=== PATIENT | female | born 1960 | race Caucasian/White ===

== ENCOUNTER → 2019-12-24 08:54 | Outpatient (CLI) | payer MEDICARE ==
[~2019-12-24] VITALS: Ht 162.6 cm; Wt 72.3 kg
--- NOTE | ~2019-12-24 | HEMODYNAMI ---
PATIENT:LENCHO CAMPBELL MEDICAL RECORD: [id number] : 58 [id number] ADMISSION DATE: 12/24/19 Generatedon:12/24/201911:19 Patient name: LENCHO CAMPBELL Patient #: [id number] SSN: [id number] : 1960 Date of study: 12/24/2019 Page: Of Hemodynamic Procedure Report Patient Data Patient Demographics Procedure consent was obtained First Name: LENCHO Gender: Female Last Name: ADRIAN : 1960 Patient #: [id number] Age: 59 year(s) Race: SSN: [id number] Additional ID: [id number] Contact details Address: [address] [place] [address] State: [place] City: [place] Zip code: [address] Admission Admission Data Admission Date: 12/24/2019 Admission Time: 8:54 Arrival Date: 12/24/2019 Arrival Time: 10:00 Admit Source: Other Insurance Payor: Medicare [facility] #: [id number] Height (in.): 63.78 BSA: 1.77 (m2) Height (cm.): 162 BMI: 27.43 (kg/m2) Weight (lbs.): 158.73 Weight (kg.): 72 Procedure Procedure Types Cath Procedure Diagnostic Procedure LHC LHC w/Coronaries Procedure Description Procedure Date Procedure Date: 12/24/2019 Procedure Start Time: 11:10 Procedure End Time: 11:16 Procedure Staff Name Function Frank Webber MD Performing Physician Raquel Iverson RT Monitor Cherie Lowry RT Scrub Alexandra Nath RN Nurse Indication Angina Procedure Data Cath Procedure Fluoroscopy Diagnostic fluoroscopy Total fluoroscopy Time: 0.9 time: 0.9 min min Diagnostic fluoroscopy Total fluoroscopy dose: 296 dose: 296 mGy mGy Contrast Material Contrast Material Type Amount (ml) Isovue 300 41 Entry Location Entry Primary Successful Side Size Upsize Upsize Entry Closure Ren ccessful Closure Location (Fr) 1 (Fr) 2 (Fr) Remarks Device Remarks Radial Right 6 Fr Mechanical artery Short Compression Estimated blood loss: 5 ml Diagnostic catheters Device Type Used For End Catheter Placement DIAGNOSTIC [place] 110cm 5 Multi-vessel Fr catheter ([id number]) Angiography Procedure Complications No complications Procedure Medications Medication Administration Route Dosage Oxygen etCO2 Nasal cannula 2 l/min Lidocaine 2% added to field 20 Heparin Flush Bag added to field 2 bags (1000units/500ml NS) 0.9% NaCl I.V. 100 ml/hr Radial Cocktail I.A. 1 syringe (Verapamil 2mg/Nitro 400mcg/Heparin 1500units) Versed I.V. 1 mg Fentanyl I.V. 50 mcg Versed I.V. 1 mg Fentanyl I.V. 50 mcg Fentanyl I.V. 12.5 mcg Hemodynamics Rest BSA: 1.77 (m2) O2 Consumption: Estimated: 186.41 (ml/min) O2 Consumption indexed : Estimated:105.32 (ml/min/m) Heart Rate: 98 (bpm) Pressure Samples Time Site Value (mmHg) Purpose Heart Use Rate(bpm) 11:12 LV 125/6,12 Snapshot 83 Snapshots Pre Cath Intra NCS Post Cath Vital Signs Time Heart Resp SPO2 etCO2 NIBP (mmHg) Rhythm Pain Sedation Rate (ipm) (%) (mmHg) Status Level (bpm) 10:21:18 96 25 93 17.3 117/90(108) NSR 0 (11) 10(A) , No pain 10:26:36 94 22 97 24.9 141/86(116) NSR 0 (11) 10(A) , No pain 10:30:48 93 21 96 12.8 139/85(105) NSR 0 (11) 10(A) , No pain 10:34:58 100 21 94 26.4 134/89(112) NSR 0 (11) 10(A) , No pain 10:39:08 95 19 95 28.7 138/85(111) NSR 0 (11) 10(A) , No pain 10:43:20 94 18 92 26.4 135/84(103) NSR 0 (11) 10(A) , No pain 10:47:31 91 17 94 28.7 130/80(101) NSR 0 (11) 10(A) , No pain 10:51:42 94 17 94 27.9 130/80(108) NSR 0 (11) 10(A) , No pain 10:55:49 94 18 93 27.2 130/84(105) NSR 0 (11) 10(A) , No pain 10:59:57 96 19 94 12 130/82(104) NSR 0 (11) 10(A) , No pain 11:04:09 92 16 95 24.9 129/70(99) NSR 0 (11) 10(A) , No pain 11:08:17 89 15 94 26.4 129/81(91) NSR 0 (11) 9(A) , No pain 11:12:27 91 15 93 19.6 127/71(88) NSR 0 (11) 9(A) , No pain 11:16:31 94 15 93 11.3 112/70(93) NSR 0 (11) 10(A) , No pain Medications Time Medication Route Dose Verified Delivered Reason Notes Effectiveness by by 10:22:29 Oxygen etCO2 2 l/min Frank Morris used for Nasal Lawanda Nath RN procedure cannula 10:22:38 Lidocaine 2% added 20ml Frank Marie for local to vial Lawanda Webber MD anesthetic field 10:22:44 Heparin Flush added 2 bags Frank Marie used for Bag to Lawanda Webber MD procedure (1000units/500ml field NS) 10:22:52 0.9% NaCl I.V. 100 Frank Morris Per ml/hr Lawanda Nath RN physician 10:27:36 Radial Cocktail I.A. 1 Frank Marie for (Verapamil syringe Lawanda Webber MD vasodilation 2mg/Nitro 400mcg/Heparin 1500units) 11:06:37 Versed I.V. 1 mg Frank Morris for sedation Lawanda Nath RN 11:06:43 Fentanyl I.V. 50 mcg Frank Morris for sedation Lawanda Nath RN 11:09:52 Versed I.V. 1 mg Frank Constantinoie for sedation Lawanda Nath RN 11:09:56 Fentanyl I.V. 50 mcg Frank Morris for sedation Lawanda Nath RN 11:13:21 Fentanyl I.V. 12.5 Frank Morris for sedation mcg Lawanda Nath RN Procedure Log Time Note 10:00:59 Cherie Lowry RT(R) sent for patient. Start room use. 10:09:11 Informed consent obtained and on chart 10:09:21 Diagnostic Cath Status : Elective 10:09:36 Indication : Angina 10:10:42 Arrival Date: 12/24/2019 10:00:00 AM 10:12:05 Insurance Payor : Medicare 10:12:06 Admit Source: Other 10:13:46 Patient Height : 63.78 inches 10:13:49 Patient Weight : 158.73 lbs 10:13:57 Procedure Status Elective Heart Cath (OP). 10:14:04 Time tracking: Regular hours (M-F 7:00 - 5:00) 10:14:08 Plan of Care:Hemodynamics will remain stable., Cardiac rhythm will remain stable., Comfort level will be maintained., Respiratory function will remain adequate., Patient/ family verbilizes understanding of procedure., Procedure tolerated without complication., Recovers from procedure without complications.. 10:14:14 Patient received from Pre/Post Procedure Room to [facility] Alert and oriented. Tansferred to table in Supine position. 10:14:16 Warm blankets applied, and wolf hugger turned on for patient comfort. 10:14:16 Correct patient and procedure confirmed by team. 10:14:16 ECG and BP/O2 sat monitors applied to patient. 10:15:54 Risk of Mortality: 0.1 10:15:57 Risk of blood transfusion: 0.8 10:16:01 Risk of SANJEEV: 0.6 10:22:29 Oxygen 2 l/min etCO2 Nasal cannula was administered by Alexandra Nath RN; used for procedure; Verbal order read back and verified. 10:22:38 Lidocaine 2% 20ml vial added to field was administered by Frank Webber MD; for local anesthetic; Verbal order read back and verified. 10:22:44 Heparin Flush Bag (1000units/500ml NS) 2 bags added to field was administered by Frank Webber MD; used for procedure; Verbal order read back and verified. 10:22:52 0.9% NaCl 100 ml/hr I.V. was administered by Alexandra Nath RN; Per physician; Verbal order read back and verified. 10:24:52 Vital chart was started 10:24:53 Baseline sample Acquired. 10:24:57 Rhythm: sinus rhythm 10:24:58 Full Disclosure recording started 10:25:02 H&P Date Dictated: 12/24/2019 Within 30 days and on chart., H&P Addendum completed by physician on day of procedure. (MUST COMPLETE FOR ALL OUTPATIENTS). 10:25:03 Pre-procedure instructions explained to patient. 10:25:03 Pre-op teaching completed and patient verbalized understanding. 10:25:05 Family in waiting room. 10:25:06 Patient NPO since Midnight. 10:25:08 Is the patient allergic to Iodine/contrast media? No. 10:25:09 Was the patient premedicated? Yes 10:25:10 Is patient on blood thinner?No 10:25:12 Patient diabetic? No. 10:25:14 Previous problem with sedation/anesthesia? No ? 10:25:16 Snore? Yes 10:25:17 Sleep apnea? Yes 10:25:18 Deviated septum? No 10:25:19 Opens mouth fully? Yes 10:25:19 Sticks out tongue? Yes 10:25:24 Airway obstruction? Yes copd asthma 10:25:27 Dentures? No ? 10:25:30 Pre procedure: right dorsailis pedis pulse 2+ Normal; easily identifiable; not easily obliterated 10:25:33 Pre procedure: left dorsailis pedis pulse 2+ Normal; easily identifiable; not easily obliterated 10:25:36 Patient pain scale 0/10 ?. 10:25:43 IV patent on arrival in left forearm with 0.9% NaCl at KVO. 10:25:47 Lab results completed and on chart. 10:25:53 Stress Test: no; N/A ? 10:25:57 Right Radial & Right Groin area was prepped with chlora-prep and draped in sterile fashion 10:25:57 Alarms reviewed by R. N. 10:25:58 Sharps counted by scrub and verified by R.N. 10:27:36 Radial Cocktail (Verapamil 2mg/Nitro 400mcg/Heparin 1500units) 1 syringe I.A. was administered by Frank Webber MD; for vasodilation; Verbal order read back and verified. 11:05:37 Physician arrived 11:05:37 --------ALL STOP TIME OUT------ 11:05:38 Final Timeout: patient, procedure, and site verified with staff and physician. All members of the team are in agreement. 11:05:41 Right Radial & Right Groin site verified by team. 11:05:47 Fire Safety Assessment: A--An alcohol-based skin anteseptic being used preoperatively., C--Open oxygen or nitrous oxide is being used., D--An ESU, laser, or fiber-optic light is being used. 11:05:51 Physical assessment completed. ASA score P 2 - A patient with mild systemic disease as per Frank Webber MD. 11:06:08 2) 60-89 Mildly reduced kidney function, and other findings (as for stage 1) point to kidney disease. 11:06:33 Maximum allowable contrast dose (3.7 X eGFR X 0.75)188 ml. 11:06:37 Versed 1 mg I.V. was administered by Alexandra Nath RN; for sedation; Verbal order read back and verified. 11:06:38 Sedation plan: IV Moderate Sedation Medication:Versed, Fentanyl 11:06:43 Fentanyl 50 mcg I.V. was administered by Alexandra Nath RN; for sedation; Verbal order read back and verified. 11:06:47 Use device set Radial Dx or PCI 11:06:48 ACIST Syringe (95400) opened to sterile field. 11:06:49 Medline Cath Pack ([id number]) opened to sterile field. 11:06:49 Bag Decanter (2002) opened to sterile field. 11:06:50 ACIST Hand Control (66860) opened to sterile field. 11:06:50 ACIST Manifold (08034) opened to sterile field. 11:06:51 Tegaderm 4 x 4 (1626W) opened to sterile field. 11:06:51 MBrace Wrist Support ([id number]) opened to sterile field. 11:06:54 EMERALD Guide Wire (569-142) opened to sterile field. 11:06:56 SHEATH 6FR RAIN (5122995) opened to sterile field. 11:09:52 Versed 1 mg I.V. was administered by Alexandra Nath RN; for sedation; Verbal order read back and verified. 11:09:54 Procedure started. 11:09:56 Fentanyl 50 mcg I.V. was administered by Alexandra Nath RN; for sedation; Verbal order read back and verified. 11:10:09 Local anesthetic to right radial artery with Lidocaine 2% by Frank Webber MD.INITIAL ACCESS ONLY 11:11:15 A 6 Fr Short sheath was inserted into the Right Radial artery 11:11:38 A DIAGNOSTIC [place] 110cm 5 Fr catheter (913506) was advanced over the wire and used for Multi-vessel Angiography. 11:13:00 LV hemodynamics recorded. 11:13:01 LV gram done using CELESTE 11:13:04 Injector settings: Ml/sec: 5, Volume: 15, 11:13:11 EF : 60 % 11:13:21 Fentanyl 12.5 mcg I.V. was administered by Alexandra Nath RN; for sedation; Verbal order read back and verified. 11:13:27 RCA angiography performed. 11:13:42 Injector settings: Ml/sec: 3, Volume: 6, 11:13:45 LCA angiography performed. 11:13:52 Injector settings: Ml/sec: 3, Volume: 6, 11:14:14 Catheter removed. 11:14:40 ACCDominant side:Left 11:14:50 Sheath removed intact; hemostasis achieved with Mechanical Compression to the Right Radial artery. 11:14:53 ZEPHYR REGULAR TR BAND (339359) opened to sterile field. 11:14:54 Procedure ended.(Physican Out) 11:15:12 Fluoroscopy time 00.90 minutes. 11:15:16 Fluoroscopy dose: 296 mGy 11:15:16 Flurop Dose total: 296 11:15:21 Dose Area Product 20654 mGy/cm. 11:15:33 Contrast amount:Isovue 300 41ml. 11:15:35 Maximum allowable dose exceeded? No. 11:15:36 Sharps counted by scrub and verified by R.N. 11:15:39 [place] band inflated with 10cc of air. 11:15:40 Insertion/operative site no bleeding no hematoma. 11:15:44 Post right radial artery:stable 11:15:45 Post Procedure Pulses reassessed and unchanged 11:15:48 Post procedure rhythm: unchanged. 11:15:52 Estimated blood loss: 5 ml 11:15:54 Post procedure instruction explained to patient.Patient verbalizes understanding. 11:15:54 Patient needs reinforcement of post procedure teaching. 11:16:11 Procedure and supply charges have been captured, reviewed, submitted and are correct. 11:16:16 Procedure Complication : No complications 11:16:18 Vital chart was stopped 11:16:20 [facility] Findings: mild to moderate CAD (<70%) 11:16:21 Operative report dictated upon procedure completion. 11:16:21 See physician's report for complete and final results. 11:16:25 Report given to Pre/Post Procedure Room. 11:16:27 Patient transfered to Pre/Post Procedure Room with Stretcher. 11:16:29 Procedure ended. 11:16:29 Full Disclosure recording stopped 11:16:35 End room use (Document Last) 11:17:11 End room use (Document Last) 11:18:09 End room use (Document Last) Device Usage Item Name Manufacture Quantity Catalog Hospital Part Current Minima l Lot# / Number Charge Number Stock Stock Serial# Code ACIST Acist 1 72667 252560 228578 [id number] 20 Syringe Medical (40113) Systems Inc Medline Medline 1 [id number] 53281 995288 5 Cath Pack ([id number]) Bag Microtek 1 274369 39516 091965 5 Decanter Medical Inc. () ACIST Hand Acist 1 06563 412465 493557 849506 5 Control Medical (29720) Systems Inc ACIST Acist 1 49198 316223 131360 579856 5 Manifold Medical (07355) Systems Inc Tegaderm 4 3M 1 1626W 030906 348491 899974 5 x 4 (1626W) MBrace Advanced 1 140-0250-00 580652 00857 485838 5 Wrist Vascular Support Dynamics (780255141) EMERALD Cardinal 1 502-455 617212 561481 972545 5 Guide Wire Health (639-455) SHEATH 6FR Cardinal 1 [id number] 804010 6409716 073027 5 [facility] (1867694) DIAGNOSTIC Terumo 1 40-4563 632488 627540 480055 5 [place] 110cm 5 Fr catheter (343650) ZEPHYR Cardinal 1 770307 574222 4649908 556026 5 REGULAR TR Health BAND (189548) Signature Audit [place] Stage Time Signature Unsigned Intra-Procedure 12/24/2019 Raquel Iverson 11:17:11 AM RT(R) Intra-Procedure 12/24/2019 Alexandra Nath RN 11:18:09 AM Intra-Procedure 12/24/2019 Frank Webber 11:19:12 AM MD Signatures Performing Physician : Signature : Frank Webber MD Date : Time : Monitor : Raquel Iverson RT Signature : Date : Time : Nurse : Alexandra Nath RN Signature : Date : Time : [facility] [address] [place] [address]
--- NOTE | ~2019-12-24 | OP ---
PATIENT NAME: LENCHO CAMPBELL MEDICAL RECORD: [id number] :58 LOCATION:D.CAT ADMISSION DATE: SURGEON: JONNY ENCARNACION MD DATE OF OPERATION: 12/24/2019 PROCEDURES: 1. Left heart catheterization. 2. Selective coronary angiography. 3. Left ventriculogram. INDICATION: Angina and coronary artery disease. PROCEDURE IN DETAIL: After informed consent was obtained and after a detailed description of risks, benefits as well as alternative therapies, the patient elected to proceed with angiogram and heart catheterization. The right radial area was prepped and draped in normal sterile fashion. Right radial artery was cannulated via modified Seldinger technique with placement of 5-Omani sheath. All catheters exchanged through this sheath. FINDINGS: Left ventriculogram performed in standard 30-degree CELESTE view, reveals good cardiac wall motion, ejection fraction estimated 60%. SELECTIVE CORONARY ANGIOGRAPHY: Left main, left anterior descending, left circumflex, right coronary artery are all smooth-walled vessels with no angiographic evidence of coronary artery disease. OVERALL IMPRESSION: 1. No angiographic evidence of coronary artery disease. 2. Normal left heart pressures. 3. Normal left ventricular systolic function. Chest pain is noncardiac in etiology. No further cardiac workup needs to be ascertained. TRANSINT:[id number] Voice Confirmation ID: [id number] DOCUMENT ID: [id number] JONNY ENCARNACION MD CC: [id number] DICTATION DATE: 12/24/19 112 IRRIGATION EQUIPMENT MECHANIC: 12/24/192040 [facility] [address] [place] [address]
[~2019-12-24 08:54] MED LIST: FUROSEMIDE40 MG PO; K-DUR20 MEQ PO; NAPROXEN SODIU220 M1 PO; TOPROL XL50 MG PO
[2019-12-24 09:29] VITALS: BP 129/73; Ht 162.6 cm; Wt 72.3 kg
[2019-12-24 09:50] LABS: BASOPHILS 0.2 % (0-2); HEMOGLOBIN 12.9 g/dL (12-16); IMMATURE GRANULOCYTES 0.2 % (0-5); LYMPHOCYTES 29.5 % (15-50); MCH 28.4 pg (26.0-34.0); MCHC 33.1 g/dL (31.0-37.0); MCV 85.9 fL (80.0-100.0); MEAN PLATELET VOLUME 9.2 fL (7.4-10.4); MONOCYTES 5.5 % (2-11); NEUTROPHILS 62.6 % (40-80); PLATELET COUNT 350 10x3/uL (130-400); RBC 4.54 10x6/uL (4.00-5.40); RDW 13.3 % (11.5-14.5); WBC 8.4 10x3/uL (4.8-10.8)
[2019-12-24 10:03] LABS: ANION GAP 9.8 mmol/L (8-16); CALCIUM 8.9 mg/dL (8.5-10.1); CARBON DIOXIDE 27.2 mmol/L (21.0-32.0); CREATININE - SERUM 0.9 mg/dL (0.6-1.3); LDL-HDL RATIO 2.6 ratio (1.5-3.5)
--- NOTE | 2019-12-24 11:30 | NUR ---
REC TO ROOM VIA STRETCHER FROM LAST PUTTER AWAY. MONITORING INITIATED. O2 AT 4LNC, C/O DYSPNEA. REPOSITIONED TO TOP OF BED, THEN HOB RAISED. DYSPNEA RELIEVED. BP 133/79, ST 108, RR 24, SAT 87 INIITALLY AND KARISHMA RAPIDLY TO 97%. FAMILY AT BEDSIDE. R WRIST ZBAND CDI, NO S/S BLEEDING OR HEMATOMA. RADIAL PULSE PALPABLE ABOVE AND BELOW BAND. INSTRUCTED TO REST R HAND. VERBALIZED UNDERSTANDING.
--- NOTE | 2019-12-24 12:00 | NUR ---
R RADIAL ZBAND INTACT, NO S/S BLEEDING OR HEMATOMA. RADIAL PULSE PALPABLE ABOVE AND BELOW BAND. NSR 92, BP 133/89, SAT 97% ON 4LNC. DTR AT BEDSIDE.
--- NOTE | 2019-12-24 12:30 | NUR ---
NO S/S BLEEDING OR HEMATOMA. R WRIST ZBAND INTACT, RADIAL PULSE PALPABLE. REMOVED 3ML AIR ZBAND. AT BEDSIDE.
--- NOTE | 2019-12-24 13:00 | NUR ---
3ML RELEASED ZBAND FOR 6ML TOTAL. TOLERATING SANDWICH AND SODA. O2 WEANED TO 2LNC. SAT 94%. BP 134/76, NSR 96 CONT TO REITERATE TO PT TO LET R ARM REST.
--- NOTE | 2019-12-24 13:15 | NUR ---
7ML AIR RELEASED TOTAL, ZBAND COMPLETELY DEFLATED. PT FINISHING LUNCH. BP 123/78, NSR 90, SAT RA 88-90. PT TO F/U W PCP PER DR ENCARNACION.
--- NOTE | 2019-12-24 13:20 | NUR ---
IV DC, MONITORING DC. R RADIAL ZBAND DC, NO S/S BLEEDING OR HEMATOMA. COVERED SITE W 2X2 AND TEGADERM. ASSISTED PT TO DRESS.
--- NOTE | 2019-12-24 13:35 | NUR ---
R WRIST REMAINS DI, NO S/S BLEEDING OR HEMATOMA. DC INSTRUCTIONS REVIEWED W PT AND SON. DC HOME VIA WC TO PRIVATE VEHICLE W FAMILY. PT HAS ALL BELONGINGS.
== END | disposition home or self-care (01) ==
LOC: D.CATH 08:54
PROVIDERS: ATTEND Internal Medicine Interventional Cardiology
DX: I25.119 Atherosclerotic heart disease of native coronary artery with unspecified angina pectoris (principal); I42.0 Dilated cardiomyopathy; I11.0 Hypertensive heart disease with heart failure; I50.9 Heart failure, unspecified; F17.200 Nicotine dependence, unspecified, uncomplicated; R06.02 Shortness of breath